=== PATIENT | female | born 2000 | race Asian ===

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

== ENCOUNTER 2021-07-10 20:19 | Emergency (ER) | payer MEDICAID ==
[~2021-07-10] VITALS: Ht 157.5 cm; Wt 64.0 kg
[2021-07-10] MEDS ORDERED: MORPHINE SULFATE 4 MG/ML SYR/VIAL IV ONE (22:45)
[2021-07-10] MEDS ORDERED: ONDANSETRON HCL 4 MG/2 ML VIAL IV ONE (22:45)
[2021-07-10] MEDS ORDERED: SODIUM CHLORIDE 0.9% 1,000 ML IV ONE (22:45)
[2021-07-10 22:52] LABS: Urine Bacteria NONE SEEN /hpf (None Seen); Urine Blood Negative /uL (Negative); Urine Specific Gravity 1.024 (1.001-1.035); Urine WBC 41 /hpf (0 - 5)
[2021-07-10] MEDS ORDERED: IOHEXOL 300 MG/ML 100ML BOTTLE IJ ONE (23:27)
[2021-07-10 23:56] LABS: Albumin 3.4 g/dL (3.4-5.0); BUN/Creatinine Ratio 10.1; Potassium 4.1 mmol/L (3.5-5.1)
[2021-07-10 23:59] LABS: Bilirubin, Total 0.5 mg/dL (0.2-1.0); Total Protein 6.4 g/dL (6.4-8.2)
[2021-07-11 00:04] LABS: Basophils # (auto) 0 10 ^3/uL (0-0.2); Basophils % (auto) 0.5 % (0.0-2.0); Eosinophils # (auto) 0.2 10 ^3/uL (0-0.8); Eosinophils % (auto) 3.2 % (0.0-7.0); Hematocrit 40.7 % (36.0-46.0); Hemoglobin 14.1 g/dL (12.2-16.2); Lymphocytes # (auto) 1.9 10 ^3/uL (0.4-5.4); Lymphocytes % (auto) 32.3 % (10.0-50.0); Mean Corpuscular Hemoglobin 31.4 pg (28.0-32.0); Mean Corpuscular Hgb Conc. 34.7 g/dL (32.0-36.0); Mean Corpuscular Volume 90.4 fL (80.0-100.0); Monocytes # (auto) 0.4 10 ^3/uL (0-1.3); Monocytes % (auto) 6.7 % (0.0-12.0); Neutrophils # (auto) 3.4 10 ^3/uL (1.6-8.6); Neutrophils % (auto) 57.3 % (37.0-80.0); Red Cell Distribution Width 12.4 % (11.8-14.3)
[2021-07-11] MEDS ORDERED: MORPHINE SULFATE 4 MG/ML SYR/VIAL IV ONE ×2 (05:00→08:45)
[2021-07-11] MEDS ORDERED: ONDANSETRON HCL 4 MG/2 ML VIAL IV ONE ×2 (05:00→08:45)
[2021-07-11] MEDS ORDERED: cefTRIAXone 1GM/50ML D5W 50 ML IV ONE (08:45)
[2021-07-11 12:06] VITALS: BP 119/80
== END 2021-07-11 12:40 | disposition home or self-care (01) ==
LOC: ER 20:19
DX: R10.11 Right upper quadrant pain (principal); Z20.822 Contact with and (suspected) exposure to COVID-19
CPT/HCPCS: 36415; 74177; 76830; 76856; 80053; 81001; 81025; 83605; 85025; 87426; 96361; 96365; 96375; 96376; 99285; J0696; J2270; J2405; Q9967

== ENCOUNTER 2021-10-08 17:58 | Emergency (ER) | payer MEDICAID, OTHER ==
[~2021-10-08] VITALS: Ht 157.5 cm; Wt 63.6 kg
[2021-10-08 18:15] VITALS: BP 137/89
== END 2021-10-08 23:30 | disposition home or self-care (01) ==
LOC: ER 17:58
DX: M54.50 Low back pain, unspecified (principal); M79.18 Myalgia, other site; V43.52XA Car driver injured in collision with other type car in traffic accident, initial encounter; Y93.89 Activity, other specified; Y92.89 Other specified places as the place of occurrence of the external cause; Y99.8 Other external cause status

== ENCOUNTER 2024-03-31 13:24 | Emergency (ER) | payer MEDICAID, OTHER ==
[~2024-03-31] VITALS: Ht 157.5 cm; Wt 64.5 kg
--- NOTE | 2024-03-31 16:58 | DVH ---
CHEST RADIOGRAPH Indication: cough Technique: Frontal and lateral view of the chest was obtained Comparison: None FINDINGS: Lines and Tubes: None Lungs: Clear Pleura: No effusion. No pneumothorax. Cardiomediastinal contours: Unremarkable Bones: Unremarkable IMPRESSION: No evidence of acute disease.
[2024-03-31 17:13] VITALS: BP 129/92; TEMP 98.2
[2024-03-31 17:17] VITALS: PULSE 93; RESP 16; O2SAT 100
[2024-03-31] MEDS ORDERED: LABE100T7 PO (17:33)
[2024-03-31] MEDS ORDERED: HYDRX10T PO (17:34)
--- NOTE | 2024-03-31 17:34 | ED.PDOC ---
SOB-HPI HPI Comments 23 year old female with hx of anxiety presents for chest tightness Reports intermittent pressure on her chest that is usually worse at night Symptoms started in April 2023 after her Has been seen at urgent care and has seen PCP multiple times for same complaint and was last Rx labetalol but stopped the medication because it made her dizzy and lethargic Denies symptoms at this time Chief Complaint: Shortness of Breath Time Seen by MD: 15:56 Primary Care Provider: BRYCE Reviewed notes: Nurses Notes, Medications, Allergies Information Source: Patient Mode of Arrival: Ambulatory Past Medical History PAST MEDICAL HISTORY: Denies Surgical History: Denies all surgeries DELICATESSEN CLERK History: Denies all DELICATESSEN CLERK Hx Family History Family History: Reviewed,noncontributory to illness, Unknown Social History Smoker: Non-Smoker Alcohol: Denies ETOH Use Drugs: Denies Drug Use Lives In: Home All Other Systems: Reviewed and Negative (Per HPI) Physical Exam General Appearance: No Apparent Distress, Normal HEENT: Normal ENT Inspection, Pharynx Normal, TMs Normal Neck: Full Range of Motion, Non-Tender, Normal, Normal Inspection Respiratory: Chest Non-Tender, Lungs Clear, No Accessory Muscle Use, No Respiratory Distress, Normal Breath Sounds Cardiovascular: No Murmur, No Gallop, Regular Rate/Rhythm Breast Exam: Deferred Gastrointestinal: No Organomegaly, Non Tender, No Pulsatile Mass, Normal Bowel Sounds, Soft Genitalia: Deferred Pelvic: Deferred Rectal: Deferred Extremities: No calf tenderness, Normal capillary refill, Normal inspection, Normal range of motion, Non-tender, No pedal edema Musculoskeletal : Apperance: Normal Neurologic: Alert, cesspool cleaner II-XII nml as Tested, No Motor Deficits, Normal Affect, No Sensory Deficits Cerebellar Function: Normal Reflexes: Normal Skin: Dry, Normal Color, Warm Lymphatic: No Adenopathy Was a procedure done? Was a procedure done?: No Differential Dx Differential Diagnosis: Anxiety, Asthma, Panic Attack X-Ray, Labs, Meds, VS Vital Signs Date Time Temp Pulse Resp B/P (MAP) Pulse Ox O2 Delivery O2 Flow Rate FiO2 03/31/24 17:17 93 16 100 Room Air* 0 21 03/31/24 17:13 98.2 93 16 129/92 (104) 100 98.2 03/31/24 15:28 98.2 93 18 121/85 (97) 98 98.2 03/31/24 14:12 16 99 Room Air* 0 21 03/31/24 13:56 98.7 92 16 117/89 (98) 99 X-Ray, Labs, Meds, VS Comment History and physical consistent panic attack After reassessing patient. Symptoms improved significantly May consider brown paper bag or facemask for rebreathing. Discussed lifestyle modification Getting enough sleep/meditating/staying active and exercising/eating healthy diet Lifestyle changes can be an effective way to relieve some of the stress and anxiety patient may cope with everyday. Most of the natural remedies consist of caring for the body, participating in healthy activities, and eliminating unhealthy ones Provided patient with mental health information and encouraged patient to speak with the therapist and psychologist Patient denies suicidal/homicidal ideation and auditory/visual hallucination Advised patient to notify a provider call urgent mental health services if symptoms recur or worsen Patient verbalized understanding Patient is stable for discharge at this time. External notes reviewed. Test results and diagnostic imaging interpreted. All diagnostic findings, discharge care, education and instructions provided Follow-up with PCP in 2 to 3 days Patient verbalized understanding and agreed to treatment plan Vital signs stable, afebrile, no acute distress noted Patient ambulatory with strong steady gait Advised to return precautions for any new or worsening symptoms, return to ER immediately for re-evaluation Patient is aware that the purpose of this visit was for an acute medical emergency requiring emergent stabilization. Chronic conditions, including malignancies have not been ruled out. Patient is instructed to follow up with PCP as directed and discharge instructions for continued care and workup. If unable to arrange follow-up, patient is to return to the emergency department for reassessment. Patient (parent or legal guardian if applicable) was given verbal and written discharge instructions and acknowledges understanding. Time of 1ST Reevaluation: 17:00 Reevaluation 1ST: Improved Patient Education/Counseling: Diagnosis, Treatment Family Education/Counseling: Diagnosis, Treatment Departure 1 Departure Time of Disposition: 17:32 Impression: Primary Impression: Awakens from sleep at night Disposition: HOME / SELF CARE / HOMELESS Condition: Stable e-Prescriptions Hydroxyzine Hcl (Hydroxyzine Hcl) 10 Mg Tab 10 MG PO TIDPRN PRN for 30 Days, #90 TAB 0 Refills Prov: DUSTIN AMAYA RN DOCUMENT IMPROVEMENT 03/31/24 Critical Care Note Critical Care Time?: No Stability Stability form required: No Heart Score Heart Score: Heart Score Response (Comments) Value History N/A 0 EKG N/A 0 Age N/A 0 Risk Factors N/A 0 Troponin N/A 0 Total 0 DUSTIN AMAYA NP Mar 31, 2024 17:34
== END 2024-03-31 17:40 | disposition home or self-care (01) ==
LOC: ER 13:24
DX: G47.29 Other circadian rhythm sleep disorder (principal); F41.9 Anxiety disorder, unspecified; Z98.890 Other specified postprocedural states
CPT/HCPCS: 71046

== ENCOUNTER 2024-04-28 20:44 | Emergency (ER) | payer MEDICAID ==
[~2024-04-28] VITALS: Ht 157.5 cm; Wt 69.9 kg
[~2024-04-28 20:44] MED LIST: HYDRX10T PO
[2024-04-28 21:30] VITALS: BP 137/79; PULSE 87; RESP 16; TEMP 97.9; O2SAT 100
[2024-04-28] MEDS ORDERED: traMADol HCL 50 MG TAB PO ONE (21:45)
[2024-04-28] MEDS: ACETAMINOPHEN 500 MG TAB or CAP PO ONE (22:04)
[2024-04-28] MEDS: IBUPROFEN 600 MG TAB PO ONE (22:05)
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
[2024-04-28 22:50] LABS: Basophils # (auto) 0 10 ^3/uL (0-0.2); Basophils % (auto) 0.2 % (0.0-2.0); Eosinophils # (auto) 0 10 ^3/uL (0-0.8); Eosinophils % (auto) 0.3 % (0.0-7.0); Hemoglobin 15.3 g/dL (12.2-16.2); Lymphocytes # (auto) 1.2 10 ^3/uL (0.4-5.4); Lymphocytes % (auto) 8.4 % (10.0-50.0); Mean Corpuscular Hgb Conc. 33.3 g/dL (32.0-36.0); Mean Corpuscular Volume 90.1 fL (80.0-100.0); Monocytes # (auto) 0.7 10 ^3/uL (0-1.3); Monocytes % (auto) 5.2 % (0.0-12.0); Neutrophils # (auto) 12.1 10 ^3/uL (1.6-8.6); Neutrophils % (auto) 85.9 % (37.0-80.0); Nucleated Red Blood Cells % 0.2 %; Platelet Count (auto) 361 10^3/uL (140-450); Red Cell Distribution Width 13.3 % (11.8-14.3)
[2024-04-28] MEDS: MECLIZINE HCL 25 MG TAB PO ONE (23:03)
[2024-04-28 23:07] LABS: Urine Bacteria None Seen /hpf (None Seen)
[2024-04-28 23:09] LABS: Alanine Aminotransferase 22 U/L (7-40); Alkaline Phosphatase 72 U/L (46-116); Anion Gap 10 (5-15); Aspartate Aminotransferase 21 U/L (13-40); BUN/Creatinine Ratio 11.8 (10.0-20.0); Bilirubin, Total 0.4 mg/dL (0.2-1.0); Carbon Dioxide 21 mmol/L (20-31); Magnesium 1.8 mg/dL (1.6-2.6); Potassium 3.9 mmol/L (3.5-5.1); Sodium 138 mmol/L (136-145); Total Protein 7.6 g/dL (5.7-8.2)
[2024-04-28 23:11] LABS: Blood Urea Nitrogen 8 mg/dL (9-23); Calcium 10.5 mg/dL (8.7-10.4); Chloride 107 mmol/L (98-107); Glucose 58 mg/dL (74-106)
[2024-04-28 23:17] LABS: Urine Blood Negative /uL (Negative); Urine Clarity Clear (Clear); Urine Color Light-Yellow (Yellow); Urine Mucus FEW (None Seen); Urine Protein, UAD Negative (Negative); Urine Specific Gravity 1.015 (1.001-1.035); Urine Squamous Epithelial Cell FEW /hpf (<5); Urine Urobilinogen Normal (Negative); Urine WBC 2 /HPF (0-5); Urine pH 6.5 (5.0-9.0)
[2024-04-28 23:29] LABS: Amphetamine Screen, Urine Neg (NEGATIVE); Barbiturate Scree,Urine Neg (NEGATIVE); Benzodiazephine Screen, Urine Neg (NEGATIVE); Cannabinoid Screen, Urine Neg (NEGATIVE); Cocaine Screen, Urine Neg (NEGATIVE); Opiate Scree,Urine Neg (NEGATIVE); Phencyclidine Screen, Urine Neg (NEGATIVE)
--- NOTE | 2024-04-29 00:03 | DVH ---
CHEST RADIOGRAPH Indication: shortness of breath Technique: Single frontal view of the chest was obtained COMPARISON: None FINDINGS: Lines and Tubes: None Lungs: Clear Pleura: No effusion. No pneumothorax. Cardiomediastinal contours: Unremarkable Bones: Unremarkable IMPRESSION: 1. No acute disease.
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
[2024-04-29] MEDS ORDERED: SERT50TA PO (01:26)
--- NOTE | 2024-04-29 01:38 | ECG ---
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
== END 2024-04-29 01:55 | disposition home or self-care (01) ==
LOC: ER 20:44
DX: F41.1 Generalized anxiety disorder (principal); I10 Essential (primary) hypertension; J45.909 Unspecified asthma, uncomplicated; Z79.899 Other long term (current) drug therapy; Y04.2XXA Assault by strike against or bumped into by another person, initial encounter; Y93.89 Activity, other specified; Y92.89 Other specified places as the place of occurrence of the external cause; Y99.8 Other external cause status
CPT/HCPCS: 36415; 71045; 80053; 80307; 81001; 81025; 83735; 85025; 93005; 99285; J8597